=== PATIENT | female | born 1950 | race Caucasian/White ===

== ENCOUNTER 2019-08-14 09:57 | Inpatient (IN) | payer MEDICARE, OTHER | END 2019-08-17 11:57 | disposition home or self-care (01) | LOC: ER 09:57 → TELE 09:58 → EAST 23:47 → TELE-EAST 23:54 | DX: A41.9 Sepsis, unspecified organism (principal); J18.1 Lobar pneumonia, unspecified organism; J96.21 Acute and chronic respiratory failure with hypoxia; I50.23 Acute on chronic systolic (congestive) heart failure; I13.0 Hypertensive heart and chronic kidney disease with heart failure and stage 1 through stage 4 chronic kidney disease, or unspecified chronic kidney disease; J44.1 Chronic obstructive pulmonary disease with (acute) exacerbation; R53.1 Weakness; N18.3 Chronic kidney disease, stage 3 (moderate); E11.22 Type 2 diabetes mellitus with diabetic chronic kidney disease ==

== ENCOUNTER → 2019-09-02 | Outpatient (CLI) | payer MEDICARE, OTHER ==
[~2019-09-02] MED LIST: APIX5TAB PO; ASPI-404 PO; ATEN50TA PO; ATOR20TA PO; BACL10TA PO; FURO20TA3 PO; LISI10TA6 PO; POTA10TA51 PO
[2019-09-02 12:00] LABS: Basophils # (auto) 0 uL; Basophils % (auto) 0.4 % (0.0-2.0); Eosinophils # (auto) 0.2 uL; Eosinophils % (auto) 2.3 % (0.0-7.0); Hematocrit 44.2 % (36.0-46.0); Hemoglobin 14.9 g/dL (12.2-16.2); Lymphocytes # (auto) 2.4 uL; Lymphocytes % (auto) 28.9 % (10.0-50.0); Mean Corpuscular Hemoglobin 33.4 pg (28.0-32.0); Mean Corpuscular Hgb Conc. 33.8 g/dL (32.0-36.0); Mean Corpuscular Volume 98.9 fL (80.0-100.0); Monocytes # (auto) 0.4 uL; Monocytes % (auto) 4.6 % (0.0-12.0); Neutrophils # (auto) 5.3 uL; Neutrophils % (auto) 63.8 % (37.0-80.0); Platelet Count (auto) 134 10^3/uL (140-450); Red Blood Cells 4.47 10^6/uL (4.0-5.20); Red Cell Distribution Width 16.1 % (11.8-14.3); White Blood Cell 8.3 10^3/uL (4.4-10.8)
[2019-09-02 12:06] LABS: Urine Bacteria FEW /hpf (None Seen); Urine Blood Negative /uL (Negative); Urine Hyaline Cast FEW /lpf (0 - 2); Urine Mucus FEW (None Seen); Urine Specific Gravity 1.011 (1.001-1.035); Urine WBC 19 /hpf (0 - 5)
[2019-09-02 12:28] LABS: Albumin 3.5 g/dL (3.4-5.0); Calcium 9.6 mg/dL (8.5-10.1); Potassium 4.1 mmol/L (3.5-5.1)
[2019-09-02 12:33] LABS: BUN/Creatinine Ratio 50.8; Bilirubin, Total 0.8 mg/dL (0.2-1.0); Total Protein 7.3 g/dL (6.4-8.2)
[2019-09-02 12:47] LABS: Free T4 (Free Thyroxine) 1.15 ng/dL (0.89-1.76)
[2019-09-02 12:48] LABS: Folate (Folic Acid) 13.27 ng/mL (5.38-24)
== END | disposition home or self-care (01) ==
LOC: LAB 10:57
PROVIDERS: ATTEND Internal Medicine
DX: J44.9 Chronic obstructive pulmonary disease, unspecified (principal); I12.9 Hypertensive chronic kidney disease with stage 1 through stage 4 chronic kidney disease, or unspecified chronic kidney disease; E11.22 Type 2 diabetes mellitus with diabetic chronic kidney disease; N18.3 Chronic kidney disease, stage 3 (moderate); I50.9 Heart failure, unspecified
CPT/HCPCS: 36415; 80053; 80061; 81001; 82043; 82306; 82607; 82746; 83036; 83880; 84439; 84443; 85025

== ENCOUNTER → 2019-10-09 | Outpatient (CLI) | payer MEDICARE, OTHER ==
[~2019-10-09] VITALS: Ht 160 cm; Wt 61.2 kg
[~2019-10-09] MED LIST changes: +ADENOSINE 51 MG in GIVE UN-DILUTED 0 ML IV ONE
== END | disposition home or self-care (01) ==
LOC: XY 08:16
PROVIDERS: ATTEND Internal Medicine
DX: J44.9 Chronic obstructive pulmonary disease, unspecified (principal); R07.9 Chest pain, unspecified
CPT/HCPCS: 78452; 93017; A9500; J0153

== ENCOUNTER → 2020-10-15 | Outpatient (CLI) | payer MEDICARE, OTHER ==
[~2020-10-15] MED LIST changes: -ADENOSINE 51 MG in GIVE UN-DILUTED 0 ML IV ONE; +ALBUTEROL SULF 2.5 MG/0.5ML(0.5%) NEB SOLN ONE; -ASPI-404 PO; +ASPI-543 PO; +LISI-648 PO; -LISI10TA6 PO
== END | disposition home or self-care (01) ==
LOC: RT 08:28
PROVIDERS: ATTEND Internal Medicine Pulmonary Disease
DX: J44.9 Chronic obstructive pulmonary disease, unspecified (principal)
CPT/HCPCS: 94060; 94727; 94729

== ENCOUNTER 2020-11-30 16:12 | Inpatient (IN) | payer MEDICARE, OTHER ==
[~2020-11-30] VITALS: Ht 157.5 cm; Wt 63.5 kg
[~2020-11-30 16:12] MED LIST changes: -ALBUTEROL SULF 2.5 MG/0.5ML(0.5%) NEB SOLN ONE
[2020-11-30 18:47] LABS: Basophils # (auto) 0 10 ^3/uL (0-0.2); Eosinophils # (auto) 0.1 10 ^3/uL (0-0.8); Eosinophils % (auto) 1.3 % (0.0-7.0); Hematocrit 16.9 % (36.0-46.0); Neutrophils # (auto) 3.5 10 ^3/uL (1.6-8.6); Neutrophils % (auto) 58.7 % (37.0-80.0)
[2020-11-30 18:49] LABS: Basophils % (auto) 0.4 % (0.0-2.0); Lymphocytes % (auto) 33.8 % (10.0-50.0); Mean Corpuscular Hemoglobin 30.9 pg (28.0-32.0); Mean Corpuscular Hgb Conc. 32.9 g/dL (32.0-36.0); Mean Corpuscular Volume 93.9 fL (80.0-100.0); Monocytes # (auto) 0.4 10 ^3/uL (0-1.3); Monocytes % (auto) 5.8 % (0.0-12.0); Platelet Count (auto) 199 10^3/uL (140-450); Red Cell Distribution Width 14.7 % (11.8-14.3)
[2020-11-30 18:54] LABS: INR 1.14 (0.9-1.15); Partial Thromboplastin Time 25.1 sec (23.0-31.2)
[2020-11-30 18:56] LABS: Albumin 3.6 g/dL (3.4-5.0); BUN/Creatinine Ratio 31.1; Calcium 8.9 mg/dL (8.5-10.1); Potassium 4.1 mmol/L (3.5-5.1)
[2020-11-30 18:59] LABS: Bilirubin, Total 0.3 mg/dL (0.2-1.0); Total Protein 6.4 g/dL (6.4-8.2)
[2020-11-30 19:42] LABS: Hemoglobin 5.5 g/dL (12.2-16.2)
[2020-11-30] MEDS ORDERED: DEXTROSE (50%) 50ML SYRG IV PRN (21:15)
[2020-11-30] MEDS: PANTOPRAZOLE 40mg/50ML NS AE 50 ML IV SCH (21:15)
[2020-11-30] MEDS ORDERED: NITROGLYCERIN 0.4 MG SL TAB SL PRN (21:15)
[2020-11-30] MEDS ORDERED: ONDANSETRON HCL 4 MG/2 ML VIAL IV PRN (21:15)
[2020-11-30] MEDS ORDERED: SODIUM CHLORIDE 0.9% 1,000 ML IV SCH (21:15)
[2020-11-30] MEDS ORDERED: MORPHINE SULF INJ 2 MG/ML SYRINGE 1ML IV PRN (21:15)
[2020-12-01] VITALS (7 sets, daily range): BP systolic 91–128; BP diastolic 32–60
[2020-12-01] MEDS: PANTOPRAZOLE 40mg/50ML NS AE 50 ML IV SCH (02:15)
[2020-12-01] MEDS: ACCU-CHEK COMFORT CURVE STRIP VI SCH ×2 (06:00)
[2020-12-01] MEDS: InsuLIN REG 1unit/0.01ml Soln (100units/ml) SC SCH ×2 (06:00)
[2020-12-01] MEDS ORDERED: FAMOTIDINE (10MG/ML) 2ML VL IV SCH (10:00)
== END 2020-12-01 07:42 | disposition left against medical advice (07) | DRG 378 ==
LOC: ER 16:15 → OVERFLOW 16:16
PROVIDERS: ADMIT Nurse Practitioner; ATTEND Family Medicine
DX: K92.1 Melena (principal); I13.0 Hypertensive heart and chronic kidney disease with heart failure and stage 1 through stage 4 chronic kidney disease, or unspecified chronic kidney disease; D50.0 Iron deficiency anemia secondary to blood loss (chronic); E11.9 Type 2 diabetes mellitus without complications; E11.22 Type 2 diabetes mellitus with diabetic chronic kidney disease; I50.9 Heart failure, unspecified; I70.8 Atherosclerosis of other arteries; K44.9 Diaphragmatic hernia without obstruction or gangrene; J44.9 Chronic obstructive pulmonary disease, unspecified; E78.00 Pure hypercholesterolemia, unspecified; Z82.3 Family history of stroke; Z82.49 Family history of ischemic heart disease and other diseases of the circulatory system; Z87.891 Personal history of nicotine dependence; Z90.49 Acquired absence of other specified parts of digestive tract; Z79.899 Other long term (current) drug therapy; Z79.891 Long term (current) use of opiate analgesic; Z79.01 Long term (current) use of anticoagulants; Z79.82 Long term (current) use of aspirin; N18.31 Chronic kidney disease, stage 3a; Z20.822 Contact with and (suspected) exposure to COVID-19
CPT/HCPCS: 36415; 36430; 74176; 80053; 82962; 83690; 85025; 85610; 85730; 86850; 86900; 86901; 86920; 93005; 96365; 96366; 96372; G0378

== ENCOUNTER 2020-12-04 14:35 | Inpatient (IN) | payer MEDICARE, OTHER ==
[~2020-12-04] VITALS: Ht 157.5 cm; Wt 62.6 kg
[~2020-12-04 14:35] MED LIST changes: -LISI-648 PO; +LISI-716 PO
[2020-12-04] MEDS ORDERED: PANTOPRAZOLE 40mg/50ML NS AE 50 ML IV ONE (15:45)
[2020-12-04] MEDS ORDERED: PANTOPRAZOLE 40 MG TAB PO ONE (16:30)
[2020-12-04 16:37] LABS: INR 1.07 (0.9-1.15); Partial Thromboplastin Time 21.9 sec (23.0-31.2)
[2020-12-04 16:41] LABS: Albumin 3.3 g/dL (3.4-5.0); Blood Urea Nitrogen 12 mg/dL (7-18); Calcium 8.9 mg/dL (8.5-10.1); Chloride 110 mmol/L (98-107); Potassium 4.1 mmol/L (3.5-5.1); Sodium 143 mmol/L (136-145)
[2020-12-04 16:42] LABS: Basophils # (auto) 0 10 ^3/uL (0-0.2); Basophils % (auto) 0.3 % (0.0-2.0); Eosinophils # (auto) 0.1 10 ^3/uL (0-0.8); Eosinophils % (auto) 1.4 % (0.0-7.0); Hemoglobin 10.2 g/dL (12.2-16.2); Lymphocytes # (auto) 1.5 10 ^3/uL (0.4-5.4); Lymphocytes % (auto) 22.7 % (10.0-50.0); Mean Corpuscular Hemoglobin 31.2 pg (28.0-32.0); Mean Corpuscular Volume 91.8 fL (80.0-100.0); Monocytes # (auto) 0.3 10 ^3/uL (0-1.3); Monocytes % (auto) 4.7 % (0.0-12.0); Neutrophils # (auto) 4.8 10 ^3/uL (1.6-8.6); Neutrophils % (auto) 70.9 % (37.0-80.0); Nucleated Red Blood Cells % 0.1 %; Red Blood Cells 3.27 10^6/uL (4.0-5.20); Red Cell Distribution Width 14.7 % (11.8-14.3); White Blood Cell 6.7 10^3/uL (4.4-10.8)
[2020-12-04] MEDS ORDERED: ONDANSETRON ODT 4 MG TAB PO ONE (16:45)
[2020-12-04 16:49] LABS: Alanine Aminotransferase 23 U/L (13-56); Alkaline Phosphatase 49 U/L (45-117); Anion Gap 4 (5-15); Aspartate Aminotransferase 26 U/L (15-37); BUN/Creatinine Ratio 14.5; Bilirubin, Total 0.7 mg/dL (0.2-1.0); Carbon Dioxide 29 mmol/L (21-32); GFR African American 87 mL/min; GFR Non-African American 72 mL/min; Glucose 88 mg/dL (74-106); Lipase 106 U/L (73-393); Magnesium 1.9 mg/dL (1.6-2.6); Total Protein 6.1 g/dL (6.4-8.2)
[2020-12-04] MEDS ORDERED: LORazepam 2MG/ML-1ML VIAL IV PRN (18:15)
[2020-12-04] MEDS ORDERED: LABETALOL HCL 5 MG/ML 4ML SYRINGE IV PRN (18:15)
[2020-12-04] MEDS ORDERED: NITROGLYCERIN 0.4 MG SL TAB SL PRN (18:15)
[2020-12-04] MEDS ORDERED: SODIUM CHLORIDE 0.9% 1,000 ML IV SCH (18:15)
[2020-12-04] MEDS ORDERED: MORPHINE SULFATE INJECTION 2 MG/ML SYRG IV PRN ×2 (18:15)
[2020-12-04] MEDS ORDERED: IOHEXOL 300 MG/ML 100ML BOTTLE IJ ONE (19:24)
[2020-12-04] MEDS: PANTOPRAZOLE 40 MG/10 ML VIAL INJ IV SCH (22:00)
[2020-12-05 01:28] LABS: Hematocrit 27.5 % (36.0-46.0); Hemoglobin 9.5 g/dL (12.2-16.2)
[2020-12-05 04:16] LABS: Hematocrit 28.2 % (36.0-46.0); Hemoglobin 9.6 g/dL (12.2-16.2)
[2020-12-05 06:09] LABS: Basophils # (auto) 0 10 ^3/uL (0-0.2); Basophils % (auto) 0.2 % (0.0-2.0); Eosinophils # (auto) 0.1 10 ^3/uL (0-0.8); Eosinophils % (auto) 2.2 % (0.0-7.0); Hematocrit 27.3 % (36.0-46.0); Hemoglobin 9.3 g/dL (12.2-16.2); Lymphocytes # (auto) 1.7 10 ^3/uL (0.4-5.4); Lymphocytes % (auto) 36.3 % (10.0-50.0); Mean Corpuscular Hemoglobin 31.3 pg (28.0-32.0); Mean Corpuscular Hgb Conc. 34.1 g/dL (32.0-36.0); Mean Corpuscular Volume 91.9 fL (80.0-100.0); Monocytes # (auto) 0.3 10 ^3/uL (0-1.3); Neutrophils # (auto) 2.6 10 ^3/uL (1.6-8.6); Neutrophils % (auto) 55.3 % (37.0-80.0); Nucleated Red Blood Cells % 0.1 %; Red Blood Cells 2.97 10^6/uL (4.0-5.20); Red Cell Distribution Width 14.4 % (11.8-14.3); White Blood Cell 4.6 10^3/uL (4.4-10.8)
[2020-12-05 06:32] LABS: Potassium 4.6 mmol/L (3.5-5.1)
[2020-12-05 06:38] LABS: INR 1.08 (0.9-1.15); Partial Thromboplastin Time 22.9 sec (23.0-31.2)
[2020-12-05 06:44] LABS: Albumin 3.1 g/dL (3.4-5.0); BUN/Creatinine Ratio 15.3; Bilirubin, Total 0.8 mg/dL (0.2-1.0); Total Protein 5.6 g/dL (6.4-8.2)
[2020-12-05] MEDS: PANTOPRAZOLE 40 MG/10 ML VIAL INJ IV SCH ×2 (09:17→22:00)
[2020-12-05] MEDS: ONDANSETRON HCL 4 MG/2 ML VIAL IV PRN (09:26)
[2020-12-05 10:19] LABS: Hemoglobin 9.1 g/dL (12.2-16.2)
[2020-12-05 10:23] LABS: Urine Bacteria FEW /hpf (None Seen); Urine Blood Negative /uL (Negative); Urine Specific Gravity 1.048 (1.001-1.035); Urine WBC 81 /hpf (0 - 5)
[2020-12-05 10:41] LABS: Alcohol, Urine < 3.0 mg/dL (0-10); Amphetamine Screen, Urine NEGATIVE (NEGATIVE); Barbiturate Scree,Urine NEGATIVE (NEGATIVE); Benzodiazephine Screen, Urine NEGATIVE (NEGATIVE); Cannabinoid Screen, Urine NEGATIVE (NEGATIVE); Cocaine Screen, Urine NEGATIVE (NEGATIVE); Opiate Scree,Urine NEGATIVE (NEGATIVE); Phencyclidine Screen, Urine NEGATIVE (NEGATIVE)
[2020-12-05 13:16] LABS: Hemoglobin 9.9 g/dL (12.2-16.2)
[2020-12-05] MEDS ORDERED: LIDOCAINE VISCOUS 2% 15ML UD ONE (14:18)
[2020-12-05] MEDS ORDERED: SODIUM CHLORIDE LOCK 10 ML ONE (14:18)
[2020-12-05] MEDS ORDERED: diphenhdrAMINE HCL 50 MG/1 ML VL ONE (14:19)
[2020-12-05] MEDS: MIDAZOLAM HCL 5 MG/ML-1ML VIAL ONE ×2 (14:42→14:45)
[2020-12-05] MEDS: fentaNYL CITRATE 100 MCG/2 ML VL ONE ×2 (14:42→14:45)
[2020-12-05] MEDS: cefTRIAXone 1GM/50ML D5W 50 ML IV SCH (15:21)
[2020-12-05] MEDS: SUCRALFATE 1 GM/10 ML ORAL SUSP PO SCH ×2 (17:36→23:32)
[2020-12-05 20:15] LABS: Hematocrit 27.2 % (36.0-46.0); Hemoglobin 9.2 g/dL (12.2-16.2)
[2020-12-05 21:13] LABS: Hematocrit 25.3 % (36.0-46.0); Hemoglobin 8.5 g/dL (12.2-16.2)
[2020-12-05] MEDS: metroNIDAZOLE 500MG/100ML 100 ML IV SCH (22:41)
[2020-12-06 03:56] LABS: Hematocrit 24.8 % (36.0-46.0); Hemoglobin 8.5 g/dL (12.2-16.2)
[2020-12-06] MEDS: metroNIDAZOLE 500MG/100ML 100 ML IV SCH (06:44)
[2020-12-06] MEDS: SUCRALFATE 1 GM/10 ML ORAL SUSP PO SCH ×2 (07:05→10:57)
[2020-12-06] MEDS: ONDANSETRON HCL 4 MG/2 ML VIAL IV PRN (07:36)
[2020-12-06] MEDS: PANTOPRAZOLE 40 MG/10 ML VIAL INJ IV SCH (10:00)
[2020-12-06] MEDS: cefTRIAXone 1GM/50ML D5W 50 ML IV SCH (10:55)
[2020-12-06 11:50] VITALS: BP 156/57
== END 2020-12-06 11:54 | disposition home or self-care (01) | DRG 378 ==
LOC: ER 14:35 → OVERFLOW 18:19
PROVIDERS: ADMIT Family Medicine; ATTEND Family Medicine
PROC: 0DB88ZX Excision of Small Intestine, Via Natural or Artificial Opening Endoscopic, Diagnostic (ICD-10-PCS; 2020-12-05)
PROC: 0DB68ZX Excision of Stomach, Via Natural or Artificial Opening Endoscopic, Diagnostic (ICD-10-PCS; principal; 2020-12-05 14:35)
DX: K25.4 Chronic or unspecified gastric ulcer with hemorrhage (principal); D68.69 Other thrombophilia; E44.0 Moderate protein-calorie malnutrition; K29.71 Gastritis, unspecified, with bleeding; K29.90 Gastroduodenitis, unspecified, without bleeding; D64.9 Anemia, unspecified; E11.9 Type 2 diabetes mellitus without complications; N30.90 Cystitis, unspecified without hematuria; K62.89 Other specified diseases of anus and rectum; K44.9 Diaphragmatic hernia without obstruction or gangrene; Z20.822 Contact with and (suspected) exposure to COVID-19; E78.5 Hyperlipidemia, unspecified; I11.0 Hypertensive heart disease with heart failure; I50.9 Heart failure, unspecified; J44.9 Chronic obstructive pulmonary disease, unspecified; Z79.82 Long term (current) use of aspirin; Z82.3 Family history of stroke; Z82.49 Family history of ischemic heart disease and other diseases of the circulatory system; Z91.19 Patient's noncompliance with other medical treatment and regimen; Z90.49 Acquired absence of other specified parts of digestive tract; Z87.891 Personal history of nicotine dependence; Z68.25 Body mass index [BMI] 25.0-25.9, adult
CPT/HCPCS: 36415; 43239; 71045; 74177; 80053; 80061; 80307; 81001; 82378; 83690; 83735; 83880; 84443; 84484; 85014; 85018; 85025; 85610; 85730; 86850; 86900; 86901; 93005; G0378; J0696; J2250; J2405; J3490

== ENCOUNTER 2020-12-18 07:30 | Inpatient (IN) | payer MEDICARE, OTHER ==
[~2020-12-18] VITALS: Ht 154.9 cm; Wt 59.0 kg
[2020-12-18] MEDS ORDERED: methylPREDNISolone SOD SUCC 125 MG/2 ML VL IV ONE (07:45)
[2020-12-18] MEDS ORDERED: FUROSEMIDE 40 MG/4 ML VIAL IV ONE (08:00)
[2020-12-18] MEDS ORDERED: AZITHROMYCIN 500MG/ 250ML 250 ML IV ONE (08:00)
[2020-12-18 08:09] LABS: Basophils # (auto) 0 10 ^3/uL (0-0.2); Basophils % (auto) 0.2 % (0.0-2.0); Eosinophils # (auto) 0 10 ^3/uL (0-0.8); Hematocrit 32.6 % (36.0-46.0); Hemoglobin 10.6 g/dL (12.2-16.2); Lymphocytes # (auto) 1.4 10 ^3/uL (0.4-5.4); Lymphocytes % (auto) 17.4 % (10.0-50.0); Mean Corpuscular Hemoglobin 29.5 pg (28.0-32.0); Mean Corpuscular Hgb Conc. 32.5 g/dL (32.0-36.0); Mean Corpuscular Volume 90.8 fL (80.0-100.0); Monocytes # (auto) 0.3 10 ^3/uL (0-1.3); Monocytes % (auto) 3.7 % (0.0-12.0); Neutrophils # (auto) 6.1 10 ^3/uL (1.6-8.6); Neutrophils % (auto) 78.7 % (37.0-80.0); Nucleated Red Blood Cells % 0.2 %; Red Blood Cells 3.59 10^6/uL (4.0-5.20); Red Cell Distribution Width 14.9 % (11.8-14.3); White Blood Cell 7.8 10^3/uL (4.4-10.8)
[2020-12-18 08:20] LABS: Anion Gap 7 (5-15); Blood Urea Nitrogen 22 mg/dL (7-18); Calcium 8.2 mg/dL (8.5-10.1); Carbon Dioxide 26 mmol/L (21-32); Chloride 107 mmol/L (98-107); Glucose 248 mg/dL (74-106); Magnesium 1.9 mg/dL (1.6-2.6); Potassium 5.3 mmol/L (3.5-5.1); Sodium 140 mmol/L (136-145)
[2020-12-18 08:24] LABS: Lactic Acid w/Reflex 4.5 mmol/L (0.4-2.0)
[2020-12-18 08:28] LABS: Alanine Aminotransferase 26 U/L (13-56); Alkaline Phosphatase 86 U/L (45-117); Aspartate Aminotransferase 45 U/L (15-37); BUN/Creatinine Ratio 22.4; Bilirubin, Total 0.4 mg/dL (0.2-1.0); GFR African American 72 mL/min; GFR Non-African American 59 mL/min
[2020-12-18 08:46] LABS: Urine Bacteria NONE SEEN /hpf (None Seen); Urine Blood Negative /uL (Negative); Urine Specific Gravity 1.019 (1.001-1.035); Urine WBC 1 /hpf (0 - 5)
[2020-12-18] MEDS ORDERED: NOREPINEPHRINE 8 MG/250ML KIT 250 ML IV SCH (09:15)
[2020-12-18] MEDS: NOREPINEPHRINE 8 MG/250ML KIT 250 ML IV SCH (09:16)
[2020-12-18 10:32] VITALS: BP 139/49
[2020-12-18] MEDS ORDERED: NITROGLYCERIN 0.4 MG SL TAB SL PRN ×2 (11:15→12:30)
[2020-12-18] MEDS ORDERED: MORPHINE SULFATE INJECTION 2 MG/ML SYRG IV PRN ×3 (11:15→12:30)
[2020-12-18] MEDS ORDERED: SODIUM CHLORIDE 0.9% 1,000 ML IV ONE (11:45)
[2020-12-18] MEDS ORDERED: PANT40TA2 PO (11:49)
[2020-12-18] MEDS ORDERED: FLUT1AER3 IN (11:57)
[2020-12-18] MEDS ORDERED: POTA10TA32 PO (11:57)
[2020-12-18] MEDS ORDERED: ERGO1CAP12 PO (11:58)
[2020-12-18] MEDS ORDERED: SODIUM CHLORIDE 0.9% 1,000 ML IV SCH (12:30)
[2020-12-18] MEDS ORDERED: REMDESIVIR PER PHARMACY 0 ML IV SCH (12:30)
[2020-12-18] MEDS ORDERED: ALUM & MAG HYDROX-SIMETH LIQ(MAALOX) 30 ML PO PRN (12:30)
[2020-12-18] MEDS ORDERED: ACETAMINOPHEN 500 MG TAB PO PRN (12:30)
[2020-12-18] MEDS ORDERED: HYDROcodone-ACET 5/325MG TAB PO PRN (12:30)
[2020-12-18] MEDS ORDERED: ALBUTEROL SULF HFA 90MCG INH 200DOSE IN PRN (12:30)
[2020-12-18] MEDS ORDERED: DOCUSATE SOD 100 MG CAP PO PRN (12:30)
[2020-12-18] MEDS ORDERED: SUCRALFATE 1 GM TAB PO ONE (12:30)
[2020-12-18] MEDS ORDERED: PANTOPRAZOLE 40 MG/10 ML VIAL INJ IV ONE (12:30)
[2020-12-18] MEDS ORDERED: ONDANSETRON HCL 4 MG/2 ML VIAL IV PRN (12:30)
[2020-12-18] MEDS ORDERED: LORazepam 0.5 MG TAB PO PRN (12:30)
[2020-12-18] MEDS ORDERED: ALBUMIN 25% 100 ML IV ONE (12:30)
[2020-12-18] MEDS ORDERED: METOPROLOL SUCCINATE XL 50 MG TAB PO ONE (12:30)
[2020-12-18 13:13] LABS: Cholesterol 61 mg/dL (< 200)
[2020-12-18 13:14] LABS: HDL Cholesterol 32 mg/dL (40-59); LDL Cholesterol 17 mg/dL (< 100); Lactate Dehydrogenase 647 U/L (84-246); Triglycerides 157 mg/dL (< 150)
[2020-12-18] MEDS ORDERED: CLINDAMYCIN 600MG IV 50 ML IV SCH (14:00)
[2020-12-18] MEDS ORDERED: REMDESIVIR 200 MG in NS 210ml LOADING DOSE ADULT IV ONE (15:00)
[2020-12-18 15:05] VITALS: BP 112/48
[2020-12-18] MEDS: SUCRALFATE 1 GM TAB PO SCH ×2 (16:51→23:26)
[2020-12-18] MEDS: CLINDAMYCIN 600MG IV 50 ML IV SCH (16:51)
[2020-12-18 16:55] LABS: Amphetamine Screen, Urine NEGATIVE (NEGATIVE); Barbiturate Scree,Urine NEGATIVE (NEGATIVE); Benzodiazephine Screen, Urine NEGATIVE (NEGATIVE); Cannabinoid Screen, Urine NEGATIVE (NEGATIVE); Cocaine Screen, Urine NEGATIVE (NEGATIVE); Opiate Scree,Urine NEGATIVE (NEGATIVE); Phencyclidine Screen, Urine NEGATIVE (NEGATIVE)
[2020-12-18 18:32] VITALS: BP 124/49
[2020-12-18] MEDS: ALBUMIN 25% 100 ML IV SCH (21:09)
[2020-12-18] MEDS ORDERED: BUDESONIDE (INHALATION) 180 MCG IH IN SCH (22:00)
[2020-12-18 22:25] VITALS: BP 103/46
[2020-12-18] MEDS: ENOXAPARIN SOD 40 MG/0.4 ML SYRINGE SC SCH (23:26)
[2020-12-18] MEDS: ATORVASTATIN 20 MG TAB PO SCH (23:26)
[2020-12-19] VITALS (7 sets, daily range): BP systolic 90–153; BP diastolic 37–74
[2020-12-19] MEDS: CLINDAMYCIN 600MG IV 50 ML IV SCH ×3 (01:56→16:00)
[2020-12-19] MEDS ORDERED: FUROSEMIDE 20 MG/2 ML VIAL IV ONE (02:45)
[2020-12-19] MEDS ORDERED: DEXTROSE (50%) 50ML SYRG IV PRN (04:15)
[2020-12-19] MEDS ORDERED: ETOMIDATE (2MG/ML) 20ML VIAL IV ONE ×2 (04:30→05:45)
[2020-12-19] MEDS ORDERED: SUCCINYLCHOLINE CHLORIDE 20 MG/ML 10ML VIAL IV ONE ×2 (04:31→05:45)
[2020-12-19] MEDS ORDERED: fentaNYL Drip 2500mCg/250mlNS 250 ML IV ONE (04:50)
[2020-12-19] MEDS: fentaNYL Drip 2500mCg/250mlNS 250 ML IV SCH (05:00)
[2020-12-19] MEDS: ALBUMIN 25% 100 ML IV SCH ×2 (05:34→12:22)
[2020-12-19] MEDS ORDERED: MIDAZOLAM DRIP 50 mg/50mL 50 ML IV ONE (05:36)
[2020-12-19] MEDS ORDERED: fentaNYL CITRATE 100 MCG/2 ML VL IV ONE (05:45)
[2020-12-19] MEDS: MIDAZOLAM DRIP 50 mg/50mL 50 ML IV SCH ×2 (06:12→08:39)
[2020-12-19] MEDS: SUCRALFATE 1 GM TAB PO SCH ×2 (06:24→08:41)
[2020-12-19 07:31] LABS: Hematocrit 24.5 % (36.0-46.0); Mean Corpuscular Hemoglobin 29.5 pg (28.0-32.0); Mean Corpuscular Hgb Conc. 32.9 g/dL (32.0-36.0); Mean Corpuscular Volume 89.8 fL (80.0-100.0); Red Blood Cells 2.72 10^6/uL (4.0-5.20); Red Cell Distribution Width 15.1 % (11.8-14.3)
[2020-12-19 07:38] LABS: Potassium 4.6 mmol/L (3.5-5.1)
[2020-12-19 07:42] LABS: INR 1.1 (0.9-1.15); Partial Thromboplastin Time 37.8 sec (23.0-31.2)
[2020-12-19 07:43] LABS: Albumin 3.7 g/dL (3.4-5.0); BUN/Creatinine Ratio 44.4; Bilirubin, Total 0.5 mg/dL (0.2-1.0); Calcium 7.8 mg/dL (8.5-10.1); Magnesium 2.1 mg/dL (1.6-2.6); Phosphorus 3.7 mg/dL (2.5-4.90); Total Protein 6.7 g/dL (6.4-8.2)
[2020-12-19 07:58] LABS: Basophils % (manual) 0 (0.0-2.0); Blast Cells 0; Eosinophils % (manual) 0 (0-7); Promyelocytes % 0; Reactive Lymphocytes 0
[2020-12-19] MEDS: ACCU-CHEK COMFORT CURVE STRIP VI SCH ×4 (08:00→20:00)
[2020-12-19] MEDS: InsuLIN REG 1unit/0.01ml Soln (100units/ml) SC SCH ×4 (08:00→20:00)
[2020-12-19] MEDS: NOREPINEPHRINE 8 MG/250ML KIT 250 ML IV SCH (08:39)
[2020-12-19] MEDS: levoFLOXacin 750MG 150 ML IV SCH (08:40)
[2020-12-19] MEDS: DexAMETHasone SOD PHOS 10MG/1ML VIAL INJ IV SCH (08:40)
[2020-12-19] MEDS: PANTOPRAZOLE 40 MG/10 ML VIAL INJ IV SCH (08:40)
[2020-12-19] MEDS: ZINC SULFATE 220mg CAP or TAB PO SCH (08:40)
[2020-12-19] MEDS: CHOLECALCIFEROL (VITD3) 2,000 UNIT CAP/TAB PO SCH (08:41)
[2020-12-19] MEDS: ASCORBIC ACID 1,000 MG TAB PO SCH (08:41)
[2020-12-19] MEDS: ENOXAPARIN SOD 40 MG/0.4 ML SYRINGE SC SCH ×2 (08:41→22:21)
[2020-12-19 09:24] LABS: Band Neutrophils % (manual) 39; Lymphocytes % (manual) 21 (10.0-50.0); Metamyelocytes % 1; Monocytes % (manual) 4 (0-12); Myelocytes % 4
[2020-12-19] MEDS ORDERED: IVERMECTIN 3 MG TAB PO ONE (10:00)
[2020-12-19] MEDS ORDERED: METOPROLOL SUCCINATE XL 50 MG TAB PO SCH (10:00)
[2020-12-19] MEDS: SUCRALFATE 1 GM/10 ML ORAL SUSP GT SCH ×3 (11:30→22:21)
[2020-12-19] MEDS ORDERED: ROCURONIUM 10MG/ML 10ML VIAL IV ONE (14:00)
[2020-12-19] MEDS: REMDESIVIR 100mg 100 MG in SODIUM CHL 0.9% 230 ML IV SCH (15:00)
[2020-12-19] MEDS ORDERED: diphenhdrAMINE HCL 50 MG/1 ML VL IV ONE (16:30)
[2020-12-19] MEDS ORDERED: ACETAMINOPHEN 650 mg PER 20.3 mL UD PO ONE (16:30)
[2020-12-19] MEDS ORDERED: methylPREDNISolone SOD SUCC 40 MG/ML VL IV ONE (16:30)
[2020-12-19] MEDS ORDERED: TOCILIZUMAB 400 MG in SODIUM CHL 0.9% 80 ML IV ONE (17:00)
[2020-12-19] MEDS ORDERED: HEPARIN IN NS 1000U/500ML (2UNIT/ML) 500 ML BAG/KIT IV ONE (20:15)
[2020-12-19] MEDS: ATORVASTATIN 20 MG TAB PO SCH (22:21)
[2020-12-20 03:29] LABS: Albumin 3.7 g/dL (3.4-5.0); BUN/Creatinine Ratio 39.8; Calcium 8.5 mg/dL (8.5-10.1); Potassium 5.1 mmol/L (3.5-5.1)
[2020-12-20 03:32] LABS: Bilirubin, Total 0.5 mg/dL (0.2-1.0); Total Protein 6.6 g/dL (6.4-8.2)
[2020-12-20 03:54] VITALS: BP 120/53
[2020-12-20] MEDS: InsuLIN REG 1unit/0.01ml Soln (100units/ml) SC SCH ×6 (04:12→20:00)
[2020-12-20] MEDS: ACCU-CHEK COMFORT CURVE STRIP VI SCH ×6 (04:13→20:00)
[2020-12-20] MEDS: fentaNYL Drip 2500mCg/250mlNS 250 ML IV SCH (05:53)
[2020-12-20] MEDS: SUCRALFATE 1 GM/10 ML ORAL SUSP GT SCH ×4 (06:42→22:00)
[2020-12-20 06:50] VITALS: BP 109/49
[2020-12-20 07:04] LABS: Hematocrit 24.9 % (36.0-46.0); Hemoglobin 8.3 g/dL (12.2-16.2); Mean Corpuscular Hgb Conc. 33.1 g/dL (32.0-36.0); Mean Corpuscular Volume 90.4 fL (80.0-100.0); Red Blood Cells 2.76 10^6/uL (4.0-5.20); Red Cell Distribution Width 15.4 % (11.8-14.3)
[2020-12-20 07:09] LABS: Basophils % (manual) 0 (0.0-2.0); Blast Cells 0; Eosinophils % (manual) 0 (0-7); Promyelocytes % 0; Reactive Lymphocytes 0
[2020-12-20] MEDS ORDERED: methylPREDNISolone SOD SUCC 40 MG/ML VL IV ONE (08:30)
[2020-12-20] MEDS ORDERED: ACETAMINOPHEN 650 mg PER 20.3 mL UD PO ONE (08:30)
[2020-12-20] MEDS ORDERED: diphenhdrAMINE HCL 50 MG/1 ML VL IV ONE (08:30)
[2020-12-20] MEDS ORDERED: TPN PER PHARMACY 0 ML IV SCH (09:45)
[2020-12-20] MEDS: NOREPINEPHRINE 8 MG/250ML KIT 250 ML IV SCH ×2 (09:57→21:00)
[2020-12-20 10:14] LABS: Band Neutrophils % (manual) 2; Lymphocytes % (manual) 10 (10.0-50.0); Metamyelocytes % 5; Monocytes % (manual) 3 (0-12); Myelocytes % 1
[2020-12-20 10:36] LABS: Magnesium 2.4 mg/dL (1.6-2.6); Pre Albumin 11.6 mg/dL (20.0-40.0)
[2020-12-20] MEDS: TOCILIZUMAB 400 MG in SODIUM CHL 0.9% 80 ML IV ONE ×2 (10:44→11:14)
[2020-12-20 10:50] VITALS: BP 166/66
[2020-12-20] MEDS: CLINDAMYCIN 600MG IV 50 ML IV SCH ×3 (11:13→18:00)
[2020-12-20] MEDS: PANTOPRAZOLE 40 MG/10 ML VIAL INJ IV SCH (11:14)
[2020-12-20] MEDS: CHOLECALCIFEROL (VITD3) 2,000 UNIT CAP/TAB PO SCH (11:14)
[2020-12-20] MEDS: ASCORBIC ACID 1,000 MG TAB PO SCH (11:14)
[2020-12-20] MEDS: DexAMETHasone SOD PHOS 10MG/1ML VIAL INJ IV SCH (11:14)
[2020-12-20] MEDS: ENOXAPARIN SOD 40 MG/0.4 ML SYRINGE SC SCH ×2 (11:14→22:00)
[2020-12-20] MEDS: levoFLOXacin 750MG 150 ML IV SCH (11:14)
[2020-12-20] MEDS: ZINC SULFATE 220mg CAP or TAB PO SCH (11:14)
[2020-12-20] MEDS ORDERED: IOHEXOL 350 MG/ML 100ML IJ ONE (13:07)
[2020-12-20] MEDS ORDERED: EPINEPHrine HCL 1 MG/10 ML SYRG IV ONE ×2 (13:56→16:49)
[2020-12-20] MEDS ORDERED: CALCIUM CHLOR(10%) 100MG/ML 10ML SYRINGE IV ONE (13:56)
[2020-12-20] MEDS: PHENYLEPHRINE IV 250 ML IV SCH ×3 (14:29→23:30)
[2020-12-20 14:50] VITALS: BP 78/41
[2020-12-20] MEDS ORDERED: SODIUM BICARBONATE 8.4% INJ 50ML SYRINGE IV ONE (16:49)
[2020-12-20] MEDS: REMDESIVIR 100mg 100 MG in SODIUM CHL 0.9% 230 ML IV SCH (17:18)
[2020-12-20] MEDS ORDERED: EPINEPHrine HCL 250 ML IV SCH (17:30)
[2020-12-20 19:36] VITALS: BP 90/50
[2020-12-20] MEDS ORDERED: TPN PER PHARMACY IV NR ×7 (20:00)
[2020-12-20] MEDS: MIDAZOLAM DRIP 50 mg/50mL 50 ML IV SCH (21:00)
[2020-12-20] MEDS: ATORVASTATIN 20 MG TAB PO SCH (22:00)
[2020-12-20 22:16] VITALS: BP 68/25
[2020-12-21] MEDS: InsuLIN REG 1unit/0.01ml Soln (100units/ml) SC SCH
[2020-12-21] MEDS: CLINDAMYCIN 600MG IV 50 ML IV SCH
[2020-12-21] MEDS: ACCU-CHEK COMFORT CURVE STRIP VI SCH
[2020-12-21] MEDS ORDERED: EPINEPHrine HCL 1 MG/10 ML SYRG IV ONE (00:06)
== END 2020-12-21 00:07 | DRG 871 ==
LOC: ER 07:30 → EDBD 07:30 → TELE 07:31
PROVIDERS: ADMIT Hospitalist; ATTEND Hospitalist
PROC: XW033E5 Introduction of Remdesivir Anti-infective into Peripheral Vein, Percutaneous Approach, New Technology Group 5 (ICD-10-PCS; 2020-12-18)
PROC: 5A09357 Assistance with Respiratory Ventilation, Less than 24 Consecutive Hours, Continuous Positive Airway Pressure (ICD-10-PCS; 2020-12-18)
PROC: 5A1945Z Respiratory Ventilation, 24-96 Consecutive Hours (ICD-10-PCS; principal; 2020-12-19)
PROC: XW033H5 Introduction of Tocilizumab into Peripheral Vein, Percutaneous Approach, New Technology Group 5 (ICD-10-PCS; 2020-12-19)
PROC: 0BH17EZ Insertion of Endotracheal Airway into Trachea, Via Natural or Artificial Opening (ICD-10-PCS; 2020-12-19)
PROC: 06HM33Z Insertion of Infusion Device into Right Femoral Vein, Percutaneous Approach (ICD-10-PCS; 2020-12-19)
PROC: 04HY32Z Insertion of Monitoring Device into Lower Artery, Percutaneous Approach (ICD-10-PCS; 2020-12-19)
PROC: 4A133B1 Monitoring of Arterial Pressure, Peripheral, Percutaneous Approach (ICD-10-PCS; 2020-12-19)
PROC: 4A133J1 Monitoring of Arterial Pulse, Peripheral, Percutaneous Approach (ICD-10-PCS; 2020-12-19)
PROC: 5A12012 Performance of Cardiac Output, Single, Manual (ICD-10-PCS; 2020-12-20)
PROC: 5A12012 Performance of Cardiac Output, Single, Manual (ICD-10-PCS; 2020-12-21)
DX: A41.89 Other specified sepsis (principal); U07.1 COVID-19; J96.21 Acute and chronic respiratory failure with hypoxia; J12.82 Pneumonia due to coronavirus disease 2019; I50.33 Acute on chronic diastolic (congestive) heart failure; R65.21 Severe sepsis with septic shock; I21.4 Non-ST elevation (NSTEMI) myocardial infarction; E44.0 Moderate protein-calorie malnutrition; I13.0 Hypertensive heart and chronic kidney disease with heart failure and stage 1 through stage 4 chronic kidney disease, or unspecified chronic kidney disease; J98.11 Atelectasis; I47.1 Supraventricular tachycardia; I46.9 Cardiac arrest, cause unspecified; E11.22 Type 2 diabetes mellitus with diabetic chronic kidney disease; D64.9 Anemia, unspecified; E78.5 Hyperlipidemia, unspecified; I27.21 Secondary pulmonary arterial hypertension; N18.9 Chronic kidney disease, unspecified; E78.1 Pure hyperglyceridemia; J43.9 Emphysema, unspecified; J84.10 Pulmonary fibrosis, unspecified; D89.839 Cytokine release syndrome, grade unspecified; I48.0 Paroxysmal atrial fibrillation; N30.90 Cystitis, unspecified without hematuria; Z79.4 Long term (current) use of insulin; Z79.899 Other long term (current) drug therapy; Z82.3 Family history of stroke; Z82.49 Family history of ischemic heart disease and other diseases of the circulatory system; Z86.73 Personal history of transient ischemic attack (TIA), and cerebral infarction without residual deficits; Z87.891 Personal history of nicotine dependence; Z91.14 Patient's other noncompliance with medication regimen; Z90.49 Acquired absence of other specified parts of digestive tract; Z87.11 Personal history of peptic ulcer disease
CPT/HCPCS: 36415; 36600; 51702; 71045; 80053; 80061; 80307; 81001; 82040; 82306; 82728; 82805; 82962; 83036; 83605; 83615; 83735; 83880; 84100; 84443; 84478; 84484; 85007; 85025; 85027; 85379; 85610; 85730; 86141; 87040; 87070; 87086; 87205; 87426; 87804; 92950; 93005; 93306; 93970; 94002; 94003; 94660; 96365; 96366; 96368; 96375; 99291; C9113; G0378; J0171; J0330; J1100; J1815; J1956; J2250; J3490; P9047